=== PATIENT | male | born 1995 | race Caucasian/White ===

== ENCOUNTER 2024-04-19 08:58 | Inpatient (IN) | payer OTHER ==
[2024-04-19] MEDS ORDERED: DOCUSATE SODIUM 100 MG CAPSULE (FP) PO PRN (11:31)
[2024-04-19] MEDS ORDERED: BENZONATATE 200 MG CAPSULE PO PRN (11:31)
[2024-04-19] MEDS ORDERED: DICYCLOMINE HCL 10 MG CAPSULE PO PRN (11:31)
[2024-04-19] MEDS ORDERED: POLYETHYLENE GLYCOL (HEALTHYLAX) 3350 17 GM PACKET PO PRN (11:31)
[2024-04-19] MEDS ORDERED: BISMUTH SUBSALICYLATE 524 MG/30 ML PO PRN (11:31)
[2024-04-19] MEDS ORDERED: MAGNESIUM HYDROX 2400MG/30ML ORAL SUSPENSION 30 ML CUP PO PRN (11:31)
[2024-04-19] MEDS ORDERED: LOPERAMIDE HCL 2 MG CAPSULE PO PRN (11:31)
[2024-04-19] MEDS ORDERED: MAG HYDROX/AL HYDROX/SIMETH 30 ML UNIT-DOSE CUP PO PRN (11:31)
[2024-04-19] MEDS ORDERED: NALOXONE HCL (KLOXXADO) 8 MG SPRAY NS PRN (11:31)
[2024-04-19] MEDS ORDERED: NICOTINE POLACRILEX 2 MG GUM BUC PRN (11:31)
[2024-04-19] MEDS ORDERED: NICOTINE POLACRILEX 2 MG LOZENGE BC PRN (11:31)
[2024-04-19] MEDS ORDERED: NALOXONE HCL 0.4 MG/ML VIAL IM PRN (11:31)
[2024-04-19] MEDS ORDERED: IBUPROFEN 400 MG TABLET (FP) PO PRN (11:31)
[2024-04-19] MEDS ORDERED: BENZOCAINE/MENTHOL (CHLORASEPTIC ) LOZENGE MM PRN (11:31)
[2024-04-19] MEDS ORDERED: guaiFENesin 600 MG TABLET.ER (FP) PO PRN (11:31)
[2024-04-19] MEDS ORDERED: ACETAMINOPHEN 325 MG TABLET (FP) PO PRN (11:31)
[2024-04-19] MEDS ORDERED: P-EPHED 60MG/TRIPROLIDI 2.5MG TABLET PO PRN (11:31)
[2024-04-19] MEDS: METHOCARBAMOL 500 MG TABLET PO PRN (19:36)
[2024-04-19] MEDS: hydrOXYzine PAMOATE 25 MG CAPSULE (FP) PO PRN (22:28)
[2024-04-19] MEDS: MELATONIN 5 MG TABLETS PO SCH (22:28)
[2024-04-19] MEDS: THIAMINE 100 MG TABLET PO SCH (22:28)
[2024-04-19] MEDS: levETIRAcetam 500 MG TABLET (FP) PO SCH (22:30)
[2024-04-20] MEDS: PRENATAL VITAMINS W/ FOLIC ACID TABLET (FP) PO SCH (10:05)
[2024-04-20] MEDS: methaDONE HCL 10 MG TABLET PO ONE (10:59)
[2024-04-20] MEDS: diazePAM 5 MG TABLET PO PRN (11:08)
[2024-04-20] MEDS: diazePAM 5 MG TABLET PO SCH (13:38)
[2024-04-20 19:21] LABS: POTASSIUM 3.9 mmol/L (3.5-5.1)
[2024-04-20 19:22] LABS: HEMATOCRIT 39.2 % (35.4-49); HEMOGLOBIN 13.7 GM/dL (11.7-16.9); MCH 28.7 pg (25.7-33.7); MCHC 34.9 g/dl (32.0-35.9); MEAN CELL VOLUME 82.2 fl (80-96); MEAN PLT VOLUME 8.1 fl (7.5-11.1); PLATELET COUNT 304 10^3/uL (134-434); RBC 4.77 M/mm3 (4.00-5.60); RDW 13.8 % (11.9-15.9); WHITE BLOOD COUNT 8.6 K/mm3 (4.0-10.0)
[2024-04-20 19:26] LABS: CALCIUM 9.4 mg/dL (8.5-10.1)
[2024-04-20 19:27] LABS: ALBUMIN 3.5 g/dl (3.4-5.0)
[2024-04-20 19:30] LABS: CREATININE 0.6 mg/dL (0.55-1.3)
[2024-04-20 19:32] LABS: BILIRUBIN,TOTAL 0.5 mg/dL (0.2-1); TOT PROT 7.1 g/dl (6.4-8.2)
[2024-04-20] MEDS: IBUPROFEN 600 MG TABLET (FP) PO PRN (20:07)
[2024-04-20] MEDS: SUVOREXANT 10 MG TABLET PO PRN (22:22)
[2024-04-20] MEDS: ONDANSETRON *ODT* 4 MG TABLET SL PRN (22:31)
[2024-04-21] MEDS: diazePAM 5 MG TABLET PO SCH (05:51)
[2024-04-21] MEDS: methaDONE HCL 40 MG DISPERSABLE TABLET PO ONE (10:19)
[2024-04-21] MEDS: GABAPENTIN 100 MG CAPSULE PO SCH (13:47)
[2024-04-21 21:11] VITALS: TEMP 97.9
[2024-04-22] MEDS: diazePAM 5 MG TABLET PO ONE (06:10)
[2024-04-22] MEDS: methaDONE 40 MG, methaDONE 10 MG PO ONE (09:46)
[2024-04-22 09:55] VITALS: BP 105/62; PULSE 73; RESP 17
== END 2024-04-22 10:32 | disposition home or self-care (01) | DRG 773 ==
LOC: YASAS 08:58 → Y6N 12:09
PROVIDERS: ADMIT Allergy & Immunology; ATTEND Surgery
PROC: HZ2ZZZZ Detoxification Services for Substance Abuse Treatment (ICD-10-PCS; principal; 2024-04-19)
DX: F13.230 Sedative, hypnotic or anxiolytic dependence with withdrawal, uncomplicated (principal); F11.20 Opioid dependence, uncomplicated; F17.210 Nicotine dependence, cigarettes, uncomplicated; F25.1 Schizoaffective disorder, depressive type; F19.282 Other psychoactive substance dependence with psychoactive substance-induced sleep disorder; F41.9 Anxiety disorder, unspecified; M54.50 Low back pain, unspecified; G89.29 Other chronic pain; Z99.89 Dependence on other enabling machines and devices
CPT/HCPCS: 36415; 80053; 80305; 85027; 86780; 93005; 93010; Q0162